=== PATIENT | female | born 1990 | race Caucasian/White ===

== ENCOUNTER → 2022-12-18 | Day surgery (SDC) | payer OTHER ==
[~2022-12-18] MED LIST: Acetaminophen 500 MG TAB ONE; Acetaminophen 500 MG TAB PO SCH; Iron Sucrose Complex 500 MG in Sodium Chloride 0.9% 250 ML 250 ML IVPB SCH
== END ==
LOC: CSHSDC/OP 12:58
PROVIDERS: ATTEND Family Medicine
DX: K90.9 Intestinal malabsorption, unspecified (principal)
CPT/HCPCS: J1756; J7050

== ENCOUNTER → 2023-01-27 | Day surgery (SDC) | payer OTHER | LOC: CSHSDC/OP 12:36 | PROVIDERS: ATTEND Family Medicine | DX: O99.019 Anemia complicating pregnancy, unspecified trimester (principal); D64.9 Anemia, unspecified; O99.619 Diseases of the digestive system complicating pregnancy, unspecified trimester; K90.9 Intestinal malabsorption, unspecified; Z3A.00 Weeks of gestation of pregnancy not specified | CPT/HCPCS: J1756; J7050 ==